=== PATIENT | female | born 1950 | race Caucasian/White ===

== ENCOUNTER → 2016-08-07 | Day surgery (SDC) | payer OTHER, MEDICARE ==
[~2016-08-07] VITALS: Ht 149.9 cm; Wt 86.2 kg
[~2016-08-07] MED LIST: AMITIZA8 MC1 PO; AMLODIPINE BESYL5 M1 PO; ASPIRIN325 M2 PO; CRESTOR20 M2 PO; DIOVAN160 MG PO; LASIX40 M1 PO; MS CONTIN15 M2 PO; OMEPRAZOLE40 M1 PO; OXYCODONE HCL10 M2 PO; POTASSIUM CHLO20 ME4 PO; TOPROL XL50 M1 PO
--- NOTE | 2016-08-07 10:18 | Operative Report ---
Operative/Inv Procedure Report Surgery Date: 08/07/16 Name of Procedure: Exchange intraocular lens right eye Pre-Operative Diagnosis: Problem with intraocular lens right eye 20/20 vision Post-Operative Diagnosis: Same Estimated Blood Loss: none Surgeon/[employer] Senior Manager: HEATHER BRASWELL,MEENA Light Anesthesia: local monitored anesthesi Complications: None Operative/Procedure Note Note: The patient was brought to the operating room standard monitoring equipment was attached the patient was prepped and draped in the usual fashion for intraocular surgery. A lid speculum was placed to retract the lids. The case was begun by reopening the temporal incision with a 2.4 mm keratome. The eye was stabilized with a Marshall ring during this incision. 1 mL of non-preserved lidocaine was introduced into the anterior chamber to provide anesthesia. The anterior chamber was then filled and deepened with viscoelastic. The intraocular lens lens was then dissected free of the anterior capsule lower rim with viscoelastic and then elevated out of the capsular bag by placing additional viscoelastic behind it. The lens was then cut in half and each side removed. The capsular bag was deepened with viscoelastic. The new lens a [[employer] multifocal ZLB00] [ 21.0] diopter placed into the bag under direct visualization and rotated so that the haptics were at 11 and 5:00. Viscoelastic was then removed from the eye by flushing it out and then by automated irrigation and aspiration. The eye was pressurized to a normal tone. 1/10 of a cc of vancomycin solution was introduced into the anterior chamber to provide antibiotic prophylaxis. The wounds were sealed by hydrating the stroma adjacent to them and the eye was left at a proper tone after the wounds were checked and found not to be leaking. The lid speculum was removed from the orbit. Antibiotic and steroid drops were placed on the eye and then the eye was shielded. Monitoring equipment was removed from the patient and the patient was removed from the operative suite to the holding area. The patient tolerated the procedure well and will be seen in the office tomorrow.
== END ==
LOC: STS 01:57
DX: T85.29XA Other mechanical complication of intraocular lens, initial encounter (principal); I10 Essential (primary) hypertension; J44.9 Chronic obstructive pulmonary disease, unspecified; J45.909 Unspecified asthma, uncomplicated; Z87.891 Personal history of nicotine dependence
CPT/HCPCS: J2250; V2632; V2788-GY